=== PATIENT | male | born 1985 | race Caucasian/White ===

== ENCOUNTER 2020-05-20 14:50 | Outpatient (REF) | payer OTHER, SELFPAY | END 2020-05-20 14:51 | disposition home or self-care (01) | LOC: HO.SCI 14:50 | PROVIDERS: Visit Provider Nurse Practitioner Primary Care | DX: Z13.89 Encounter for screening for other disorder (principal) ==

== ENCOUNTER → 2020-07-08 14:52 | Outpatient (BNVA) | payer OTHER, SELFPAY | PROVIDERS: Visit Provider Internal Medicine Pulmonary Disease | DX: J45.40 Moderate persistent asthma, uncomplicated (principal); Z91.09 Other allergy status, other than to drugs and biological substances | CPT/HCPCS: 99202 ==

== ENCOUNTER 2020-08-08 15:05 | Outpatient (REF) | payer OTHER, SELFPAY ==
--- NOTE | 2020-08-08 17:02 | PFT_ITS ---
FLOWS: FEV1 of 59% of predicted at 2.10 L. FVC 85% of predicted at 3.70 L. FEV1 to FVC ratio of 0.57. Positive bronchodilator response. LUNG VOLUMES: Total lung capacity 94% of predicted at 5.21 L. Residual volume 139% of predicted at 1.82 L. Slow vital capacity 80% of predicted at 3.39 L. Expiratory reserve volume 51% of predicted at 0.64 L. Diffusion capacity is normal. IMPRESSION: Moderate obstructive ventilatory defect with positive bronchodilator response. Increased residual volume suggests air trapping. Velasquez Corral MD AP/MODL / [id number]
== END 2020-08-08 15:06 | disposition home or self-care (01) ==
LOC: HO.RESP 15:05
PROVIDERS: Visit Provider Internal Medicine Pulmonary Disease
DX: J45.40 Moderate persistent asthma, uncomplicated (principal)
CPT/HCPCS: 94060; 94727; 94729

== ENCOUNTER → 2020-09-12 14:32 | Outpatient (BNVA) | payer OTHER, SELFPAY | PROVIDERS: Visit Provider Internal Medicine Pulmonary Disease | DX: J45.40 Moderate persistent asthma, uncomplicated (principal); L30.9 Dermatitis, unspecified; Z91.09 Other allergy status, other than to drugs and biological substances | CPT/HCPCS: 99212 ==

== ENCOUNTER → 2020-11-06 13:29 | Outpatient (BNVA) | payer OTHER, SELFPAY | PROVIDERS: PCP Nurse Practitioner Primary Care; Visit Provider Internal Medicine Pulmonary Disease | DX: J45.40 Moderate persistent asthma, uncomplicated (principal) | CPT/HCPCS: 99211 ==

== ENCOUNTER → 2020-12-17 14:26 | Outpatient (BNVA) | payer OTHER, SELFPAY | PROVIDERS: PCP Nurse Practitioner Primary Care; Visit Provider Internal Medicine Pulmonary Disease | DX: J45.40 Moderate persistent asthma, uncomplicated (principal); L30.9 Dermatitis, unspecified; Z91.09 Other allergy status, other than to drugs and biological substances | CPT/HCPCS: 99212 ==

== ENCOUNTER → 2021-04-22 14:20 | Outpatient (BNVA) | payer MEDICAID, SELFPAY | PROVIDERS: PCP Nurse Practitioner Primary Care; Visit Provider Internal Medicine Pulmonary Disease | DX: J45.40 Moderate persistent asthma, uncomplicated (principal); F17.200 Nicotine dependence, unspecified, uncomplicated; Z91.09 Other allergy status, other than to drugs and biological substances | CPT/HCPCS: 99212 ==